=== PATIENT | female | born 1945 ===

== ENCOUNTER 2019-01-30 03:10 | Emergency (ER) | payer OTHER ==
[2019-01-30] MEDS ORDERED: ASPIRIN 81 MG CHEW PO ONE (03:25)
[2019-01-30 03:34] LABS: PLATELET COUNT, AUTOMATED 214 K/uL (150-450)
[2019-01-30] MEDS ORDERED: KETOROLAC 30 MG/ML VIAL IVP ONE (03:45)
[2019-01-30] MEDS ORDERED: LEVO137T22 PO (03:54)
[2019-01-30] MEDS ORDERED: SIMV-54 PO (03:55)
[2019-01-30] MEDS ORDERED: OMEG10007 (03:55)
[2019-01-30] MEDS ORDERED: NOR10 PO (03:55)
[2019-01-30] MEDS ORDERED: METO25TA23 PO (03:55)
[2019-01-30] MEDS ORDERED: MAGNESIUM (03:55)
[2019-01-30] MEDS ORDERED: CALC-640 PO (03:55)
[2019-01-30 04:57] VITALS: BP 154/79
--- NOTE | 2019-01-30 05:57 | EKG ---
FACILITY: [facility] - [place] PATIENT NAME: LATONIA SCHWARTZ : [id number] MR: [id number] V: [id number] EXAM DATE: ORDERING PHYSICIAN: KATERIN BLOCK TECHNOLOGIST: DIANA Chambers Reason : Blood Pressure : / mmHG Vent. Rate : 074 BPM Atrial Rate : 074 BPM P-R Int : 144 ms QRS Dur : 092 ms QT Int : 392 ms P-R-T Axes : 039 -09 036 degrees QTc Int : 435 ms Normal sinus rhythm No previous ECGs available Confirmed by Gopi Smith ([id number]) on 01/30/2019 7:52:59 AM Referred By: Confirmed By:Gopi Soto
--- NOTE | 2019-01-30 06:03 | ER Report ---
History and Physical Time Seen By MD: 03:15 Hx. of Stated Complaint: CHEST PAIN STARTING AT 0230. PAIN 2/10 HPI/ROS Traveling in an RV from [place]. Patient awoke at 0200 with substernal chest pain. No diaphoresis, nausea, SOB, or radiation. Does not smoke. No DM or HTN. Symptoms lasted 5 minutes. Now with a dull ache. in chest. Remainder of the 14 system rev: Yes Home Meds Reported Medications Hope-3/Dha/Epa/Fish Oil (Fish Oil 1,000 mg Softgel) 1,000 Mg (120 Mg-180 Mg) Capsule 01/30/19 [Magnesium] No Conflict Check, 400 MG DAILY 01/30/19 Calcium Citrate/Vitamin D3 (CALCITRATE + VIT D CAPLET) 1 Each Tablet, 1 EACH PO 01/30/19 Nortriptyline Hcl (NORTRIPTYLINE HCL) 10 Mg Cap, 20 MG PO HS, CAP 01/30/19 Simvastatin (SIMVASTATIN) 40 Mg Tablet, 40 MG PO HS, TAB 01/30/19 Metoprolol Succinate (METOPROLOL SUCCINATE) 25 Mg Tab.er.24h, 0.5 TAB PO QDAY, TAB 01/30/19 Levothyroxine Sodium (SYNTHROID) 137 Mcg Tablet, 137 MCG PO QDAY 01/30/19 Reviewed Nurses Notes: Yes Old Medical Records Reviewed: Yes Hx Smoking: No Constitutional Vital Sign - Last 24 Hours 01/30/19 01/30/19 01/30/19 01/30/19 03:12 04:00 04:30 04:57 Temp 98.7 Pulse 71 71 77 Resp 16 17 17 B/P (MAP) 102/96 154/79 (104) Pulse Ox 92 O2 Delivery Room Air 01/30/19 01/30/19 01/30/19 01/30/19 05:00 05:30 05:35 05:55 Pulse 77 70 69 73 Resp 16 16 17 Pulse Ox 89 87 01/30/19 01/30/19 01/30/19 01/30/19 06:15 06:35 06:55 07:10 Pulse 68 66 68 Resp 15 29 11 Pulse Ox 83 79 81 O2 Flow Rate 2.0 Physical Exam General Appearance: The patient is alert, has no immediate need for airway protection and no current signs of toxicity. Eyes: Pupils equal and round no injection. Respiratory: Chest is non tender, lungs are clear to auscultation. Cardiac: regular rate and rhythm Gastrointestinal: Abdomen is soft and non tender, no masses, bowel sounds normal. Neck: Neck is supple and non tender. Extremities have full range of motion and are non tender. Skin: No rashes or lesions. DIFFERENTIAL DIAGNOSIS: After history and physical exam differential diagnosis was considered for chest pain including but not limited to myocardial ischemia, pericarditis pulmonary embolus, chest wall pain, pleural inflammation and pulm onary infectious causes. Medical Decision Making Data Points Result Diagram: 01/30/19 0325 01/30/19 0325 Laboratory Hematology Test 01/30/19 03:25 01/30/19 07:04 Red Blood Count 4.37 M/uL (4.17-5.56) Mean Corpuscular Volume 84.8 fL (80.0-96.0) Mean Corpuscular Hemoglobin 28.8 pg (26.0-33.0) Mean Corpuscular Hemoglobin Concent 34.0 g/dL (32.0-36.0) Red Cell Distribution Width 13.6 % (11.5-14.5) Mean Platelet Volume 8.6 fL (7.2-11.1) Neutrophils (%) (Auto) 44.9 % (39.4-72.5) Lymphocytes (%) (Auto) 41.9 % (17.6-49.6) Monocytes (%) (Auto) 9.9 % (4.1-12.4) Eosinophils (%) (Auto) 2.9 % (0.4-6.7) Basophils (%) (Auto) 0.4 % (0.3-1.4) Nucleated RBC Relative Count (auto) 0.0 /100WBC Neutrophils # (Auto) 2.4 K/uL (2.0-7.4) Lymphocytes # (Auto) 2.3 K/uL (1.3-3.6) Monocytes # (Auto) 0.5 K/uL (0.3-1.0) Eosinophils # (Auto) 0.2 K/uL (0.0-0.5) Basophils # (Auto) 0.0 K/uL (0.0-0.1) Nucleated RBC Absolute Count (auto) 0.00 K/uL Sodium Level 146 mmol/L (137-145) Potassium Level 3.6 mmol/L (3.5-5.0) Chloride Level 109 mmol/L (98-107) Carbon Dioxide Level 24 mmol/L (22-31) Blood Urea Nitrogen 20 mg/dl (7-18) Creatinine 1.00 mg/dl (0.52-1.04) Glomerular Filtration Rate Calc 54.3 Random Glucose 110 mg/dl (75-110) Calcium Level 8.5 mg/dl (8.4-10.2) Total Bilirubin 0.4 mg/dl (0.2-1.3) Aspartate Amino Transf (AST/SGOT) 28 U/L (0-35) Alanine Aminotransferase (ALT/SGPT) 42 U/L (0-56) Alkaline Phosphatase 70 U/L (0-126) Total Protein 7.2 g/dl (6.3-8.2) Albumin 4.1 g/dl (3.5-5.0) Troponin I < 0.012 ng/ml Chemistry Test 01/30/19 03:25 01/30/19 07:04 White Blood Count 5.4 k/uL (4.5-11.0) Red Blood Count 4.37 M/uL (4.17-5.56) Hemoglobin 12.6 g/dL (12.0-16.0) Hematocrit 37.0 % (34.0-47.0) Mean Corpuscular Volume 84.8 fL (80.0-96.0) Mean Corpuscular Hemoglobin 28.8 pg (26.0-33.0) Mean Corpuscular Hemoglobin Concent 34.0 g/dL (32.0-36.0) Red Cell Distribution Width 13.6 % (11.5-14.5) Platelet Count 214 K/uL (150-450) Mean Platelet Volume 8.6 fL (7.2-11.1) Neutrophils (%) (Auto) 44.9 % (39.4-72.5) Lymphocytes (%) (Auto) 41.9 % (17.6-49.6) Monocytes (%) (Auto) 9.9 % (4.1-12.4) Eosinophils (%) (Auto) 2.9 % (0.4-6.7) Basophils (%) (Auto) 0.4 % (0.3-1.4) Nucleated RBC Relative Count (auto) 0.0 /100WBC Neutrophils # (Auto) 2.4 K/uL (2.0-7.4) Lymphocytes # (Auto) 2.3 K/uL (1.3-3.6) Monocytes # (Auto) 0.5 K/uL (0.3-1.0) Eosinophils # (Auto) 0.2 K/uL (0.0-0.5) Basophils # (Auto) 0.0 K/uL (0.0-0.1) Nucleated RBC Absolute Count (auto) 0.00 K/uL Glomerular Filtration Rate Calc 54.3 Calcium Level 8.5 mg/dl (8.4-10.2) Total Bilirubin 0.4 mg/dl (0.2-1.3) Aspartate Amino Transf (AST/SGOT) 28 U/L (0-35) Alanine Aminotransferase (ALT/SGPT) 42 U/L (0-56) Alkaline Phosphatase 70 U/L (0-126) Total Protein 7.2 g/dl (6.3-8.2) Albumin 4.1 g/dl (3.5-5.0) Troponin I < 0.012 ng/ml ED Course/Re-evaluation ED Course Low risk for cardiac chest pain. Two negative troponins. Little CXR. Not c/w PE. Will follow up with PCM Decision to Disposition Date: Jan 30, 2019 Decision to Disposition Time: 07:35 Depart Departure Latest Vital Signs Vital Signs Date Time Temp Pulse Resp B/P (MAP) Pulse Ox O2 Delivery O2 Flow Rate FiO2 01/30/19 07:10 2.0 01/30/19 06:55 68 11 81 01/30/19 04:57 154/79 (104) 01/30/19 03:12 98.7 Room Air Impression: Primary Impression: Chest pain of uncertain etiology Condition: Improved Disposition: HOME OR SELF-CARE Patient Instructions: Chest Pain (ED) KATERIN BLOCK MD Jan 30, 2019 06:03
--- NOTE | 2019-01-30 07:21 | RADIOLOGY IMAGING REPORT ---
FACILITY: [facility] PATIENT NAME: Yuliana Robb : 1945 MR: [id number] V: [id number] EXAM DATE: ORDERING PHYSICIAN: KATERIN BLOCK TECHNOLOGIST: Location: Patient: Yuliana Robb : 1945 Visit/Account:[id number] Date of Sevice: 01/30/2019 Single view of the chest Indication: Chest pain.. Comparison: None available Findings: Heart size within normal limits. There is no focal infiltrate or lobar consolidation. No pneumothorax or pleural effusion. No acute bony finding IMPRESSION: 1. No acute cardiopulmonary process. Report Dictated By: Roddy Joseph MD at 01/30/2019 7:14 AM Report E-Signed By: Roddy Joseph MD at 01/30/2019 7:14 AM WSN:[id number]
== END 2019-01-30 07:55 | disposition home or self-care (01) ==
LOC: ER 03:15
DX: R07.9 Chest pain, unspecified (principal); Z79.899 Other long term (current) drug therapy
CPT/HCPCS: 71045; 84484; 85025; 93005; 96374; 99284; J1885; 82040; 82247; 82310; 82374; 82435; 82565; 82947; 84075; 84132; 84155; 84295; 84450; 84460; 84520

== ENCOUNTER → 2019-01-30 | Outpatient (CLI) | payer OTHER ==
[~2019-01-30] MED LIST: CALC-640 PO; LEVO137T22 PO; MAGNESIUM; METO25TA23 PO; NOR10 PO; OMEG10007; SIMV-54 PO
== END ==
LOC: AMB 02:54
PROVIDERS: ATTEND Nurse Practitioner
DX: R07.9 Chest pain, unspecified (principal)
CPT/HCPCS: A0425; A0427